=== PATIENT | male | born 1965 | race Caucasian/White ===

== ENCOUNTER 2018-02-28 23:48 | Observation (INO) | payer BC ==
[~2018-02-28] VITALS: Ht 193 cm; Wt 71.0 kg
[2018-03-01 00:29] LABS: HEMATOCRIT 37.6 % (38.0-50.0); HEMOGLOBIN 13.8 G/DL (12.5-16.6); MCH 33.4 PG (29.0-34.0); MCHC 36.7 G/DL (30.0-36.0); PLATELET COUNT 225 K/uL (156-360); RBC DIS.WIDTH-CV 12.1 % (11.8-14.6); RBC DIS.WIDTH-SD 40.6 % (39-53); RED BLOOD COUNT 4.13 M/uL (4.00-5.50); WHITE BLOOD COUNT 7.8 K/uL (4.1-10.2)
[2018-03-01 00:41] LABS: ALBUMIN 3.8 g/dL (3.2-4.8); CHLORIDE 103 mEq/L (99-109); POTASSIUM 3.6 mEq/L (3.7-5.4); SODIUM 140 mEq/L (136-147)
[2018-03-01 00:44] LABS: GLUCOSE 108 mg/dL (70-99)
[2018-03-01 00:46] LABS: TOTAL BILIRUBIN 0.4 mg/dL (0.0-1.0)
[2018-03-01 00:47] LABS: ALKALINE PHOSPHATASE 92 IU/L (3-129); CREATININE 0.9 mg/dL (0.6-1.3); GFR ESTIMATE (CALCULATED) > 59 mL/min/ (58.99-99999); SERUM ETHYL ALCOHOL 254 mg/dL
[2018-03-01 00:49] LABS: AST (GOT) 19 IU/L (2-34); UREA NITROGEN (BUN) 10 mg/dL (9-23)
[2018-03-01 00:50] LABS: ALT (GPT) 22 IU/L (3-49)
[2018-03-01 00:51] LABS: LIPASE 19 U/L (1.0-51.0); TROP-I INTERPRETATION NEGATIVE; TROPONIN-I < 0.01 ng/mL (0.0-0.30)
[2018-03-01 07:27] VITALS: BP 130/75
[2018-03-01 11:35] VITALS: BP 144/84
== END 2018-03-01 14:05 | disposition home or self-care (01) ==
LOC: EME 23:48 → EDOF 03-01 05:36 → ENRESERV 03-01 05:40 → 4SOUTH 03-01 06:07
PROVIDERS: Emergency Medicine
DX: F10.129 Alcohol abuse with intoxication, unspecified (principal); E87.6 Hypokalemia; E86.0 Dehydration; Y90.8 Blood alcohol level of 240 mg/100 ml or more; I10 Essential (primary) hypertension; F17.200 Nicotine dependence, unspecified, uncomplicated
CPT/HCPCS: 70450; 70551; 71045; 80053; 83690; 84484; 85027; 93005; 99281; 99285; G0378; G0480; J3411; J3475; J7030